=== PATIENT | male | born 1975 | race Caucasian/White ===

== ENCOUNTER 2020-04-22 15:54 | Emergency (ER) | payer SELFPAY ==
[2020-04-22 16:08] VITALS: BP 145/88; PULSE 93; RESP 16; TEMP 36.7; O2SAT 98
--- NOTE | 2020-04-22 16:21 | ED.GENADULT ---
HPI - General Adult General Chief complaint: Wound/Laceration Stated complaint: swollen arm from bite Time Seen by Provider: 04/22/20 16:21 Source: patient and RN notes reviewed Mode of arrival: ambulatory Limitations: no limitations History of Present Illness HPI narrative: 44-year-old male presents with concern for infection in his right hand. He is left-hand dominant. Reports symptoms started on Wednesday after he was working on a deck. He denies any known injury, puncture wound, foreign body. Reports he began having pain and swelling that have worsened over the last several days. He reports he tried to poke it yesterday to get drainage out with small amount of purulent drainage. Reports feeling feverish, did not take his temperature. He denies general malaise, chills, sweats. MD complaint: Hand swelling Related Data Allergies Allergy/AdvReac Type Severity Reaction Status Date / Time No Known Allergies Allergy Verified 04/22/20 16:17 Review of Systems Review of Systems: Narrative: CONSTITUTIONAL: Denies malaise, chills, sweats, or fever. CARDIOVASCULAR: Denies chest pain, palpitations RESPIRATORY: Denies dyspnea. SKIN: Reports right hand swelling, pain, redness, warmth, wound MUSCULOSKELETAL: Reports right hand pain NEUROLOGIC: Denies numbness, weakness All systems reviewed & are unremarkable except as noted in HPI and below PMFSH Social History Social History Smoking status: Former smoker Smoking end date: 08/02/15 Alcohol intake: never Comments At time of signature, agree with nursing past medical, surgical, social and family history. There is no relevant family history pertinent to the presenting complaint Exam Narrative: Exam Narrative: GENERAL: Well-appearing, well-nourished, and in no acute distress. HEAD: Normocephalic EYES: PERRLA, conjunctivae clear NECK: Supple. CHEST: Speaks in full sentences. No respiratory distress. HEART: Regular rate and rhythm. Normal and equal peripheral pulses. EXTREMITIES: Right hand and digits of hand have normal strength and sensation. 5/5 strength with digit flexion, extension. Range of motion limited due to swelling, patient unable to make a fist. Dorsal, palmar edema, edema to all 5 digits, edema and erythema extends up to the mid right forearm. Generalized tenderness, tenderness greater between the first and second digits where the area is fluctuant. Normal digital cascade with flexion of fingers, median, ulnar and radial nerve intact. Normal sensation of each side of finger. Can perform 'okay' sign, 'cross over finger test of index and middle fingers' and 'thumbs up' sign. No scissoring. Normal thumb opposition. Good radial pulse. Distal capillary refill greater than 6 seconds SKIN: Warn, dry, intact, pink. Right hand has marketed erythema, edema, slow cap refill. Area approximately 7 cm x 5 cm of ecchymosis, fluctuation with central scabbing noted between digits 1 and 2 NEURO: Alert and oriented x3. PSYCH: Normal mood and affect Course Course Emergency Course: Discussed with patient that it is recommended he be seen in the emergency room for further evaluation, possible IV antibiotics, possible circulatory compromise due to slow cap refill. Patient reports he cannot afford to go to the emergency room and refuses to be seen in the emergency room at this time. Patient reports he understands the risks of not seeking treatment in the emergency room. It was explained to the patient that I will treat him to the best of my ability. Anticipatory guidance given. Patient agrees to follow-up as directed and is aware of reasons to seek care at the emergency department. Portions of this record may have been created with voice recognition software Vital Signs Vital signs: Vital Signs Temperature 98.1 F 04/22/20 16:08 Pulse Rate 93 04/22/20 16:08 Respiratory Rate 16 04/22/20 16:08 Blood Pressure 145/88 H 04/22/20 16:08 Pulse Oximetry 98 04/22/20 16:08 Tempera
== END 2020-04-22 17:00 | disposition home or self-care (01) ==
PROVIDERS: Emergency Provider Nurse Practitioner
DX: L02.511 Cutaneous abscess of right hand (principal)
CPT/HCPCS: 10061; 99213; G0463